=== PATIENT | female | born 1980 | race American Indian/Alaskan Native ===

== ENCOUNTER 2017-12-27 20:25 | Emergency (ER) | payer MEDICAID ==
[2017-12-27] MEDS ORDERED: TORADOL IM ONE (21:32)
[2017-12-27] MEDS ORDERED: ZOFRAN ODT PO ONE (21:33)
[2017-12-27 21:50] LABS: Basophils # (Auto) 0.1 K/mm3 (0.0-0.1); Basophils % (Auto) 0.5 % (0.0-1.8); Eosinophils % (Auto) 0.1 % (0.0-4.3); Hematocrit 43.7 % (30.3-42.9); Hemoglobin 13.8 gm/dl (10.1-14.3); Lymphocytes # (Auto) 0.9 K/mm3 (1.2-5.4); Lymphocytes % (Auto) 5.3 % (13.4-35.0); Mean Corpuscular HGB Conc 32 % (30-34); Mean Corpuscular Hemoglobin 26 pg (28-32); Mean Corpuscular Volume 82 fl (79-97); Monocytes # (Auto) 1.4 K/mm3 (0.0-0.8); Monocytes % (Auto) 7.8 % (0.0-7.3); Platelet Count 266 K/mm3 (140-440); Red Blood Count 5.36 M/mm3 (3.65-5.03); Red Cell Distribution Width 15.2 % (13.2-15.2)
[2017-12-27 22:04] LABS: Bacteria,Urine 1+ /HPF (Negative); Bilirubin,Urine NEG (Negative); Blood,Urine NEG (Negative); Color,Urine Amber (Yellow); Mucus,Urine 3+ /HPF
[2017-12-27 22:09] LABS: BUN/Creatinine Ratio 10; Blood Urea Nitrogen 6 mg/dL (7-17); Calcium 9.2 mg/dL (8.4-10.2); Hemolysis Index 4
[2017-12-27] MEDS ORDERED: NACL 0.9% 1000 ML 1,000 ML IV ONE (23:00)
[2017-12-27] MEDS ORDERED: LEVAQUIN 750MG/150ML 750 MG/150 ML BAG IV ONE (23:01)
--- NOTE | 2017-12-27 23:02 | Emergency Department Report ---
<CARLTON OLEA - Last Filed: 12/27/17 23:01> ED Fever HPI - General Chief Complaint: Fever Stated Complaint: FEVER,LOWER BODY,VOMITING ED Review of Systems ROS: Stated complaint: FEVER,LOWER BODY,VOMITING Other details as noted in HPI ED Past Medical Hx - Past Medical History Previous Medical History?: No - Surgical History Past Surgical History?: No - Social History Smoking Status: Current Every Day Smoker Substance Use Type: Marijuana - Medications Home Medications: Home Medications Medication Instructions Recorded Confirmed Last Taken Type HYDROcodone/APAP 7.5-325 [[place] 1 each PO Q6HR PRN #15 tablet 12/28/17 Unknown Rx 7.5/325] Levofloxacin [Levaquin TAB] 500 mg PO QDAY #10 tablet 12/28/17 Unknown Rx Ondansetron [Zofran ODT TAB] 8 mg PO Q8HR PRN #12 tab.rapdis 12/28/17 Unknown Rx ED Physical Exam - General Limitations: No Limitations ED Course Vital Signs 12/27/17 21:37 Temperature 99.8 F H Pulse Rate 102 H Respiratory 18 Rate Blood Pressure 120/70 O2 Sat by Pulse 100 Oximetry ED Medical Decision Making - Lab Data Result diagrams: 12/27/17 21:44 12/27/17 21:44 Critical care attestation.: If time is entered above; I have spent that time in minutes in the direct care of this critically ill patient, excluding procedure time. ED Disposition Disposition: DC-01 TO HOME OR SELFCARE Condition: Stable Instructions: Acute Pyelonephritis (ED) Additional Instructions: Be sure to take nausea medication so that you can continue to drink, stay hydrated, take medications for fever as well as her antibiotics. We recommend rest because you're acutely ill, and he should not be working or exert herself for the next several days. Take her temperature regularly, and treat any fever aggressively with ibuprofen or Tylenol, as directed on the packaging of the bottle. We recommend recheck with your doctor in 2 or 3 days to assure your improvement. Emergency department if you get worse. Prescriptions: HYDROcodone/APAP 7.5-325 [[place] 7.5/325] 1 each PO Q6HR PRN #15 tablet PRN Reason: Pain Levofloxacin [Levaquin TAB] 500 mg PO QDAY #10 tablet Ondansetron [Zofran ODT TAB] 8 mg PO Q8HR PRN #12 tab.rapdis PRN Reason: Nausea Referrals: PRIMARY CARE, [Primary Care Provider] - 3-5 Days Forms: Work/School Release Form(ED) <AMALIA KEY - Last Filed: 12/28/17 01:19> ED Fever HPI - General Source: patient Exam Limitations: no limitations - History of Present Illness Initial Comments: Patient presents with report of 2 day history of fever, sore throat, generalized body aches, with intermittent nausea and vomiting. She is in good general health, takes no routine medications, denies any routine exposures. 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 She has no cough or congestion, no shortness of breath, and no particular abdominal pain. She has had some lower back pain as focus of discomfort, and optic are worse on right side or left side. Timing/Duration: yesterday Fever Severity/Quality: subjective, low grade, other (chills, sweats) Associated Symptoms: muscle aches, nausea/vomiting, sore throat, weakness. denies: abdominal pain, chest pain, confusion, cough, headache, shortness of breath, stiff neck ED Review of Systems Comment: All other systems reviewed and negative ENT: throat pain Respiratory: no symptoms reported. denies: cough, shortness of breath Cardiovascular: denies: chest pain, palpitations Gastrointestinal: denies: abdominal pain Musculoskeletal: back pain (lower back primarily, bilateral), arthralgia, myalgia Neurological: denies: headache, weakness, paresthesias Psychiatric: denies: anxiety, depression Hematological/Lymphatic: denies: easy bleeding, easy bruising ED Past Medical Hx - Past Medical History Previous Medical History?: No - Surgical History Past Surgical History?: No - Social History Smoking Status: Current Every Day Smoker ED Physical Exam - General General appearance: alert, in distress (mild discomfort, examination, but improved since time of arrival) - Head Head exam: Present: atraumatic - Eye Eye exam: Present: normal appearance, PERRL - ENT ENT exam: Present: other (pharynx shows moderate tonsillar enlargement, moderate erythema, no exudates) - Neck Neck exam: Present: normal inspection. Absent: tenderness - Respiratory Respiratory exam: Present: normal lung sounds bilaterally. Absent: respiratory distress, wheezes, rales, rhonchi - Cardiovascular Cardiovascular Exam: Present: regular rate - GI/Abdominal GI/Abdominal exam: Present: soft. Absent: guarding, rebound - Rectal Rectal exam: Present: deferred - Extremities Exam Extremities exam: Present: normal inspection. Absent: tenderness - Back Exam Back exam: Present: CVA tenderness (R) (little worse on right than left), CVA tenderness (L). Absent: muscle spasm, paraspinal tenderness - Neurological Exam Neurological exam: Present: alert, oriented X3 - Psychiatric Psychiatric exam: Present: normal affect, normal mood - Skin Skin exam: Present: warm (somewhat moist) ED Medical Decision Making - Lab Data Result diagrams: 12/27/17 21:44 12/27/17 21:44 Urinalysis shows significant signs of infection with 1+ bacteriuria, significant pyuria, modest hematuria, and large leukocyte esterase - Medical Decision Making Patient has significant signs of urinary tract infection, negative findings for pharyngitis, but a moderately elevated white count, with some costovertebral angle tenderness, suggestive of an acute pyelonephritis. She had had some nausea and intermittent vomiting, but reports improvement with ondansetron treatment here. She prefers to go home, believes that she can tolerate oral medications, and was recommended for rest. 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 She is recently obtained insurance, but does not recently have a primary care doctor, and she was encouraged to have follow- up in 2-3 days. - Differential Diagnosis pharyngitis, influenza, urinary tract infection, pyelonephritis Critical Care Time: No ED Disposition Is pt being admited?: No Does the pt Need Aspirin: No Time of Disposition: 01:14
[2017-12-28 01:54] VITALS: BP 122/85
== END 2017-12-28 01:53 | disposition home or self-care (01) ==
LOC: ED 20:25
DX: M54.5 Low back pain (principal); M79.1 Myalgia; J35.1 Hypertrophy of tonsils; R11.2 Nausea with vomiting, unspecified; R53.1 Weakness; J02.9 Acute pharyngitis, unspecified; F17.200 Nicotine dependence, unspecified, uncomplicated
CPT/HCPCS: 36415; 80048; 81001; 82140; 84703; 85025; 87040; 87086; 87116; 87430; 96361; 96365; 96372; 99283; J1885; J1956; J7030; Q0162